=== PATIENT | female | born 1945 | race Caucasian/White ===

== ENCOUNTER 2017-01-22 21:55 | Emergency (ER) | payer OTHER, MEDICARE ==
[~2017-01-22] VITALS: Ht 146.1 cm; Wt 63.2 kg
[~2017-01-22 21:55] MED LIST: CALC1CAP8 PO; CHOL200024 PO; ESTR0.5T PO; HRT; HYDR25TA6 PO; LEVO112T4 PO; LEVO125T PO; SUMA25TA3 PO; TRIA1CAP PO
[2017-01-22 21:57] VITALS: BP 144/82
[2017-01-22] MEDS ORDERED: PROPARACAINE OPHTH 0.5%, 15ML ONE (22:10)
[2017-01-22] MEDS ORDERED: FLUORESCEIN OPHTHALMIC 1 MG STRIP ONE (22:10)
[2017-01-22] MEDS ORDERED: CIPR2.5D OT (22:30)
== END 2017-01-22 23:33 | disposition home or self-care (01) ==
LOC: ED 23:20
DX: S05.02XA Injury of conjunctiva and corneal abrasion without foreign body, left eye, initial encounter (principal); X58.XXXA Exposure to other specified factors, initial encounter; Y93.89 Activity, other specified; Y92.89 Other specified places as the place of occurrence of the external cause; Y99.8 Other external cause status
CPT/HCPCS: 99282; 99283

== ENCOUNTER → 2017-11-20 | Outpatient (CLI) | payer MEDICARE, OTHER ==
[~2017-11-20] MED LIST changes: +CIPR2.5D OT
[2017-11-20 12:23] LABS: HCT (SEDRATE) 40.3 % (34.6-47.8)
== END | disposition home or self-care (01) ==
LOC: LAB 12:01
PROVIDERS: ATTEND Nurse Practitioner Primary Care
DX: M19.90 Unspecified osteoarthritis, unspecified site (principal)
CPT/HCPCS: 36415; 85651; 86038; 86200; 86430

== ENCOUNTER → 2019-04-01 | Outpatient (CLI) | payer MEDICARE ==
[~2019-04-01] MED LIST changes: +ERTA1VIA4 IV
== END | disposition home or self-care (01) ==
LOC: CFH 10:52
DX: Z13.820 Encounter for screening for osteoporosis (principal); M85.88 Other specified disorders of bone density and structure, other site; N95.9 Unspecified menopausal and perimenopausal disorder
CPT/HCPCS: 77080

== ENCOUNTER 2020-12-31 19:52 | Emergency (ER) | payer MEDICARE ==
[~2020-12-31] VITALS: Ht 144.8 cm; Wt 68.0 kg
[~2020-12-31 19:52] MED LIST changes: -CIPR2.5D OT; +CIPR2.5D2 OT
--- NOTE | 2020-12-31 20:12 | NUR ---
EKG DONE IN TRIAGE. PLACED ON 2L VIA NC FOR O2 SATS 88%
--- NOTE | 2020-12-31 20:22 | NUR ---
PATIENT TO XRAY AT THIS TIME AND THEN WILL RETURN TO ROOM 23.
[2020-12-31 20:32] LABS: BASOPHILS % (AUTO) 1 % (0-1); EOSINOPHILS % (AUTO) 7 % (1-7); LYMPHOCYTES % (AUTO) 13 % (22-44); MEAN CORPUSCULAR HEMOGLOBIN 30.8 pg (27.0-34.8); MEAN CORPUSCULAR HGB CONC 34.4 g/dL (32.4-35.8); MEAN PLATELET VOLUME 8.6 fL (7.4-10.4); MONOCYTES % (AUTO) 7 % (2-9); NEUTROPHILS % (AUTO) 72 % (42-75); PLATELET COUNT 344 x10^3/uL (130-400); RED BLOOD COUNT 4.21 x10^6/uL (3.82-5.3); RED CELL DISTRIBUTION WIDTH 14.4 % (9.6-15.2)
[2020-12-31 20:42] LABS: ALANINE AMINOTRANSFERASE 15 U/L (12-78); ALBUMIN 2.8 g/dL (3.4-5.0); ANION GAP 8 mmol/L (5-15); CALCIUM 8.9 mg/dL (8.5-10.1); CHLORIDE 112 mmol/L (98-107); CREATININE 0.77 mg/dL (0.55-1.02)
[2020-12-31 20:44] LABS: ALKALINE PHOSPHATASE 110 U/L (45-117); BILIRUBIN,TOTAL 0.3 mg/dL (0.2-1.0); TOTAL PROTEIN 6.9 g/dL (6.4-8.2)
[2020-12-31 21:17] LABS: TROPONIN I < 0.015 ng/mL (0.000-0.045)
[2020-12-31] MEDS ORDERED: FILTER 0.22 MICRON IV ONE (22:00)
[2020-12-31] MEDS ORDERED: CASIRIVIMAB 600 MG, IMDEVIMAB (REGN10987) 600 MG in SODIUM CHLORIDE 0.9% 250 ML IVPB ONE (22:00)
--- NOTE | 2020-12-31 22:54 | NUR ---
PATIENT AMBULATORY TO RESTROOM AT THIS TIME.
[2020-12-31 23:44] VITALS: BP 187/86
--- NOTE | 2021-01-01 00:18 | NUR ---
Patient given discharge instructions and they have confirmed that they understand the instructions. Patient ambulatory with steady gait. NAD, all questions answered appropriately, denies additional needs at this time. No personal belongings left in room after discharge.
== END 2021-01-01 00:20 | disposition home or self-care (01) ==
LOC: ED 20:00
DX: J18.9 Pneumonia, unspecified organism (principal); I10 Essential (primary) hypertension; R06.02 Shortness of breath; Z20.822 Contact with and (suspected) exposure to COVID-19
CPT/HCPCS: 36415; 71045; 80053; 83880; 84484; 85025; 87040; 93005; 99285; M0243